=== PATIENT | male | born 1935 | race Caucasian/White ===

== ENCOUNTER 2020-10-24 02:49 | Inpatient (IN) ==
[2020-10-24] MEDS: NOREPINEPHRINE 8 MG in SODIUM CHLORIDE 0.9% 242 ML IV PRN ×2 (02:49→15:41)
[2020-10-24] MEDS ORDERED: MIDAZOLAM 10 MG/2 ML VIAL ONE (03:27)
[2020-10-24] MEDS ORDERED: DOPamine 800 MG/250 ML PREMIX IV PRN (03:44)
[2020-10-24] MEDS ORDERED: MIDAZOLAM 10 MG/2 ML VIAL IV STA ×2 (03:45)
[2020-10-24] MEDS: MIDAZOLAM 100 MG in SODIUM CHLORIDE 0.9% 80 ML IV PRN (04:16)
[2020-10-24 04:34] LABS: ABG Base Excess -3.8 MMOL/L (-2.5-2.5); ABG HCO3 21.4 MMOL/L (20-26); ABG Oxygen Saturation 96.4 % (95-100); ABG PCO2 39.2 MM HG (35-48); ABG PH 7.354 (7.35-7.45); ABG TCO2 22.6 MMOL/L (23-27)
[2020-10-24] MEDS ORDERED: ALBUTEROL/IPRATROPIUM 3 ML NEB RESP TX PRN (04:47)
[2020-10-24] MEDS ORDERED: ACETAMINOPHEN 325 MG TABLET PO PRN (04:47)
[2020-10-24] MEDS ORDERED: ONDANSETRON 4 MG/2 ML VIAL IV PRN (04:47)
[2020-10-24 04:50] LABS: Basophils % 0.2 % (0.0-0.8); Eosinophils % 0.1 % (0.00-10.9); Hematocrit 40.2 VOL% (42.0-52.0); Hemoglobin 13.1 GM/DL (14.0-18.0); Immature Granulocytes % 0.6 %; Immature Granulocytes Absolute 0.07 #; Lymphocytes # 0.7 10*3/uL (1.4-4.0); Lymphocytes % 5.4 % (21.2-54.2); Mean Corpuscular HGB Conc 32.6 GM/DL (32-36); Mean Corpuscular Volume 91.4 FL (87-102); Monocytes % 6.1 % (1.7-12.7); Neutrophils % 87.6 % (38.7-73.9); Platelet Count 253 T/CUMM (130-400); White Blood Count 12.7 T/CUMM (4-12)
[2020-10-24 04:53] LABS: Bilirubin,Urine Negative (Negative); Blood, Urine Negative (Negative); Glucose,Urine (UA) Negative (Negative); Ketones,Urine 5 mg/dL (Negative); Nitrite,Urine Negative (Negative); Protein,Urine 30 MG/DL; Urine Appearance CLEAR (Clear); Urine Specific Gravity 1.023 (1.001-1.035)
[2020-10-24] MEDS: PANTOPRAZOLE 40 MG VIAL IV SCH (05:08)
[2020-10-24] MEDS: LACTATED RINGERS 1,000 ML IV SCH ×3 (05:08→15:40)
[2020-10-24 05:13] LABS: Alanine Aminotransferase 19 U/L (16-61); Albumin 3.3 G/DL (3.4-5.0); Alkaline Phosphatase 103 U/L (45-117); Aspartate Amino Transferase 19 U/L (0-37); Blood Urea Nitrogen 35 MG/DL (7-18); Calcium 8.7 MG/DL (8.5-10.1); Carbon Dioxide 22 MMOL/L (21-32); Estimated Glom Filtration Rate 66 ML/MIN; Glucose 242 MG/DL (74-106); Osmolality,Calculated 292.5 MOS/KG (273-304); Potassium 3.7 MMOL/L (3.5-5.1); Sodium 139 MMOL/L (136-145); Total Protein 6.8 G/DL (6.4-8.3)
[2020-10-24 05:14] LABS: Ferritin 38.8 ng/ml (26-388)
[2020-10-24 05:15] LABS: Troponin I < 0.015 NG/ML (0.00-0.045)
[2020-10-24 05:17] LABS: INR 1.5; PT Patient Result 15.9 SECS (9.8-11.9); Partial Thromboplastin Time 39.8 SECS (23.9-33.8)
[2020-10-24] MEDS ORDERED: LACTATED RINGERS 1,000 ML IV ONE (05:24)
[2020-10-24] MEDS ORDERED: HEPARIN/NACL 0.9% 2 UNITS/ML 500 ML IV ONE (09:00)
[2020-10-24] MEDS: LEVOFLOXACIN INJ 750 MG in PREMIX 1 EACH IV SCH (09:40)
[2020-10-24] MEDS: MEROPENEM 500 MG in SODIUM CHLORIDE 0.9% 100 ML IV SCH ×3 (10:00→20:35)
[2020-10-24] MEDS: HEPARIN/NACL 0.9% 2 UNITS/ML 500 ML IV SCH (10:01)
[2020-10-24] MEDS: RIVAROXABAN 20 MG TABLET PO SCH (10:32)
[2020-10-25] MEDS: LACTATED RINGERS 1,000 ML IV SCH ×3 (02:14→21:42)
[2020-10-25] MEDS: MEROPENEM 500 MG in SODIUM CHLORIDE 0.9% 100 ML IV SCH ×4 (04:15→21:06)
[2020-10-25 04:43] LABS: ABG Base Excess 1.9 MMOL/L (-2.5-2.5); ABG HCO3 25.1 MMOL/L (20-26); ABG Oxygen Saturation 96.8 % (95-100); ABG PCO2 34.1 MM HG (35-48); ABG PH 7.484 (7.35-7.45); ABG PO2 85.1 MM HG (80-95); ABG TCO2 26.1 MMOL/L (23-27)
[2020-10-25 05:03] LABS: Basophils % 0.2 % (0.0-0.8); Eosinophils # 0.1 10*3/uL (0.0-0.87); Eosinophils % 0.6 % (0.00-10.9); Hematocrit 32.8 VOL% (42.0-52.0); Hemoglobin 10.8 GM/DL (14.0-18.0); Immature Granulocytes % 0.5 %; Immature Granulocytes Absolute 0.04 #; Lymphocytes # 0.7 10*3/uL (1.4-4.0); Lymphocytes % 8.7 % (21.2-54.2); Mean Corpuscular HGB Conc 32.9 GM/DL (32-36); Mean Corpuscular Volume 89.6 FL (87-102); Mean Platelet Volume 9.4 FL (9.6-12.0); Monocytes % 8.2 % (1.7-12.7); Neutrophils % 81.8 % (38.7-73.9); Platelet Count 199 T/CUMM (130-400); Red Blood Count 3.66 MC/CUMM (3.8-5.5); Red Cell Distribution Width 14.4 % (9.3-17.3); White Blood Count 8.5 T/CUMM (4-12)
[2020-10-25 05:21] LABS: Albumin 2.5 G/DL (3.4-5.0); Bilirubin,Total 0.7 MG/DL (0.2-1.0); Calcium 8.3 MG/DL (8.5-10.1); Osmolality,Calculated 295.7 MOS/KG (273-304); Potassium 3.4 MMOL/L (3.5-5.1); Risk Ratio 2.58; Total Protein 5.3 G/DL (6.4-8.3); VLDL CHOLESTEROL 17.2 MG/DL
[2020-10-25] MEDS: PANTOPRAZOLE 40 MG VIAL IV SCH (06:24)
[2020-10-25] MEDS: LEVOFLOXACIN INJ 750 MG in PREMIX 1 EACH IV SCH (06:25)
[2020-10-25] MEDS: RIVAROXABAN 20 MG TABLET PO SCH (08:18)
[2020-10-25] MEDS: HEPARIN/NACL 0.9% 2 UNITS/ML 500 ML IV SCH (09:27)
[2020-10-25] MEDS: amLODIPine 10 MG TABLET PO SCH (09:27)
[2020-10-25] MEDS: POTASSIUM CHLORIDE 20 MEQ/15 ML UDCUP PER TUBE PRN ×3 (11:40→15:00)
[2020-10-25] MEDS ORDERED: GLUCAGON 1 MG VIAL IM PRN (15:43)
[2020-10-25] MEDS ORDERED: DEXTROSE 50% 25 GM/50 ML VIAL IV PRN (15:43)
[2020-10-25] MEDS: INSULIN REGULAR 100 UNIT/ML SUBCUT SCH (18:37)
[2020-10-26] MEDS: INSULIN REGULAR 100 UNIT/ML SUBCUT SCH ×4 (01:14→18:32)
[2020-10-26] MEDS: MEROPENEM 500 MG in SODIUM CHLORIDE 0.9% 100 ML IV SCH ×4 (01:51→20:41)
[2020-10-26] MEDS: hydrALAZINE 20 MG/1 ML VIAL IV PRN ×2 (03:52→20:43)
[2020-10-26 04:18] LABS: ABG Base Excess 1.6 MMOL/L (-2.5-2.5); ABG HCO3 24.3 MMOL/L (20-26); ABG Oxygen Saturation 98.7 % (95-100); ABG PCO2 32.2 MM HG (35-48); ABG PH 7.496 (7.35-7.45); ABG PO2 140.4 MM HG (80-95); ABG TCO2 25.3 MMOL/L (23-27)
[2020-10-26 04:35] LABS: Basophils % 0.2 % (0.0-0.8); Eosinophils # 0.1 10*3/uL (0.0-0.87); Eosinophils % 1.3 % (0.00-10.9); Hematocrit 34.9 VOL% (42.0-52.0); Hemoglobin 11.1 GM/DL (14.0-18.0); Immature Granulocytes % 0.5 %; Immature Granulocytes Absolute 0.04 #; Lymphocytes # 1.4 10*3/uL (1.4-4.0); Lymphocytes % 17.1 % (21.2-54.2); Mean Corpuscular HGB Conc 31.8 GM/DL (32-36); Mean Corpuscular Volume 92.6 FL (87-102); Mean Platelet Volume 8.9 FL (9.6-12.0); Monocytes % 11.7 % (1.7-12.7); Neutrophils % 69.2 % (38.7-73.9); Platelet Count 208 T/CUMM (130-400); Red Blood Count 3.77 MC/CUMM (3.8-5.5); Red Cell Distribution Width 14.8 % (9.3-17.3); White Blood Count 8.3 T/CUMM (4-12)
[2020-10-26 04:55] LABS: Albumin 2.5 G/DL (3.4-5.0); Bilirubin,Total 0.6 MG/DL (0.2-1.0); Calcium 8.5 MG/DL (8.5-10.1); Osmolality,Calculated 287.3 MOS/KG (273-304); Potassium 3.8 MMOL/L (3.5-5.1); Total Protein 5.7 G/DL (6.4-8.3)
[2020-10-26] MEDS: LEVOFLOXACIN INJ 750 MG in PREMIX 1 EACH IV SCH (05:30)
[2020-10-26] MEDS: PANTOPRAZOLE 40 MG VIAL IV SCH (05:31)
[2020-10-26] MEDS: LACTATED RINGERS 1,000 ML IV SCH ×2 (07:42→17:42)
[2020-10-26] MEDS: RIVAROXABAN 20 MG TABLET PO SCH (09:35)
[2020-10-26] MEDS: amLODIPine 10 MG TABLET PO SCH (09:35)
[2020-10-26] MEDS: HEPARIN/NACL 0.9% 2 UNITS/ML 500 ML IV SCH (09:35)
[2020-10-27] MEDS: INSULIN REGULAR 100 UNIT/ML SUBCUT SCH ×5 (00:35→23:52)
[2020-10-27] MEDS: MEROPENEM 500 MG in SODIUM CHLORIDE 0.9% 100 ML IV SCH ×2 (04:01→08:40)
[2020-10-27] MEDS: MIDAZOLAM 100 MG in SODIUM CHLORIDE 0.9% 80 ML IV PRN ×2 (04:30→18:10)
[2020-10-27 04:50] LABS: ABG Base Excess 2.7 MMOL/L (-2.5-2.5); ABG HCO3 25.4 MMOL/L (20-26); ABG Oxygen Saturation 98.1 % (95-100); ABG PCO2 32.8 MM HG (35-48); ABG PH 7.507 (7.35-7.45); ABG PO2 107.9 MM HG (80-95); ABG TCO2 26.4 MMOL/L (23-27)
[2020-10-27] MEDS: LACTATED RINGERS 1,000 ML IV SCH ×2 (05:56→13:40)
[2020-10-27] MEDS: LEVOFLOXACIN INJ 750 MG in PREMIX 1 EACH IV SCH (07:15)
[2020-10-27] MEDS: PANTOPRAZOLE 40 MG VIAL IV SCH (07:16)
[2020-10-27] MEDS: amLODIPine 10 MG TABLET PO SCH (09:05)
[2020-10-27] MEDS: RIVAROXABAN 20 MG TABLET PO SCH (09:05)
[2020-10-27] MEDS: HEPARIN/NACL 0.9% 2 UNITS/ML 500 ML IV SCH (10:27)
[2020-10-27 14:13] LABS: Albumin 2.2 G/DL (3.4-5.0); Bilirubin,Total 0.7 MG/DL (0.2-1.0); Calcium 8.5 MG/DL (8.5-10.1); Osmolality,Calculated 286.4 MOS/KG (273-304); Potassium 3.6 MMOL/L (3.5-5.1); Total Protein 5.5 G/DL (6.4-8.3)
[2020-10-28] MEDS: LACTATED RINGERS 1,000 ML IV SCH ×3 (00:31→21:41)
[2020-10-28 04:29] LABS: ABG Base Excess 2.7 MMOL/L (-2.5-2.5); ABG HCO3 25.8 MMOL/L (20-26); ABG Oxygen Saturation 97.8 % (95-100); ABG PCO2 34.4 MM HG (35-48); ABG PH 7.493 (7.35-7.45); ABG PO2 101.2 MM HG (80-95); ABG TCO2 26.9 MMOL/L (23-27)
[2020-10-28 04:40] LABS: Basophils % 0.4 % (0.0-0.8); Eosinophils # 0.2 10*3/uL (0.0-0.87); Eosinophils % 3.1 % (0.00-10.9); Hematocrit 33.7 VOL% (42.0-52.0); Hemoglobin 10.9 GM/DL (14.0-18.0); Immature Granulocytes % 0.4 %; Immature Granulocytes Absolute 0.03 #; Lymphocytes # 0.8 10*3/uL (1.4-4.0); Lymphocytes % 11.1 % (21.2-54.2); Mean Corpuscular HGB Conc 32.3 GM/DL (32-36); Mean Corpuscular Volume 90.3 FL (87-102); Mean Platelet Volume 9.1 FL (9.6-12.0); Monocytes % 9.6 % (1.7-12.7); Neutrophils % 75.4 % (38.7-73.9); Platelet Count 228 T/CUMM (130-400); Red Blood Count 3.73 MC/CUMM (3.8-5.5); Red Cell Distribution Width 14.6 % (9.3-17.3); White Blood Count 6.7 T/CUMM (4-12)
[2020-10-28] MEDS: PANTOPRAZOLE 40 MG VIAL IV SCH (04:44)
[2020-10-28 04:57] LABS: Calcium 8.5 MG/DL (8.5-10.1); Osmolality,Calculated 286.3 MOS/KG (273-304); Potassium 3.6 MMOL/L (3.5-5.1)
[2020-10-28] MEDS: LEVOFLOXACIN INJ 750 MG in PREMIX 1 EACH IV SCH (05:00)
[2020-10-28] MEDS: INSULIN REGULAR 100 UNIT/ML SUBCUT SCH ×4 (05:33→23:42)
[2020-10-28] MEDS: RIVAROXABAN 20 MG TABLET PO SCH (09:05)
[2020-10-28] MEDS: amLODIPine 10 MG TABLET PO SCH (09:05)
[2020-10-28] MEDS: HEPARIN/NACL 0.9% 2 UNITS/ML 500 ML IV SCH (09:30)
[2020-10-28] MEDS: MIDAZOLAM 100 MG in SODIUM CHLORIDE 0.9% 80 ML IV PRN (14:15)
[2020-10-29] MEDS: LACTATED RINGERS 1,000 ML IV SCH ×4 (05:17→17:30)
[2020-10-29] MEDS: PANTOPRAZOLE 40 MG VIAL IV SCH (05:49)
[2020-10-29] MEDS: INSULIN REGULAR 100 UNIT/ML SUBCUT SCH ×3 (07:09→18:34)
[2020-10-29] MEDS: MIDAZOLAM 100 MG in SODIUM CHLORIDE 0.9% 80 ML IV PRN (07:22)
[2020-10-29] MEDS: LEVOFLOXACIN INJ 750 MG in PREMIX 1 EACH IV SCH (07:23)
[2020-10-29] MEDS: hydrALAZINE 20 MG/1 ML VIAL IV PRN (08:08)
[2020-10-29] MEDS: amLODIPine 10 MG TABLET PO SCH (10:10)
[2020-10-29] MEDS: RIVAROXABAN 20 MG TABLET PO SCH (10:10)
[2020-10-29] MEDS: HEPARIN/NACL 0.9% 2 UNITS/ML 500 ML IV SCH (10:31)
[2020-10-29] MEDS: ATORVASTATIN 80 MG TABLET PO SCH (20:56)
[2020-10-30] MEDS: INSULIN REGULAR 100 UNIT/ML SUBCUT SCH ×5 (00:43→23:07)
[2020-10-30] MEDS: MIDAZOLAM 100 MG in SODIUM CHLORIDE 0.9% 80 ML IV PRN (01:34)
[2020-10-30 03:44] LABS: Basophils % 0.3 % (0.0-0.8); Eosinophils # 0.3 10*3/uL (0.0-0.87); Eosinophils % 4.9 % (0.00-10.9); Hematocrit 33.5 VOL% (42.0-52.0); Hemoglobin 10.7 GM/DL (14.0-18.0); Immature Granulocytes % 0.8 %; Immature Granulocytes Absolute 0.05 #; Lymphocytes # 0.9 10*3/uL (1.4-4.0); Lymphocytes % 14.1 % (21.2-54.2); Mean Corpuscular HGB Conc 31.9 GM/DL (32-36); Mean Corpuscular Volume 92.3 FL (87-102); Mean Platelet Volume 8.7 FL (9.6-12.0); Monocytes % 13.8 % (1.7-12.7); Neutrophils % 66.1 % (38.7-73.9); Platelet Count 244 T/CUMM (130-400); Red Blood Count 3.63 MC/CUMM (3.8-5.5); White Blood Count 6.2 T/CUMM (4-12)
[2020-10-30 03:48] LABS: ABG HCO3 27.1 MMOL/L (20-26); ABG Oxygen Saturation 98.5 % (95-100); ABG PCO2 35.5 MM HG (35-48); ABG PH 7.479 (7.35-7.45); ABG TCO2 23.6 MMOL/L (23-27)
[2020-10-30 04:02] LABS: Calcium 8.4 MG/DL (8.5-10.1); Osmolality,Calculated 284.3 MOS/KG (273-304); Potassium 3.7 MMOL/L (3.5-5.1)
[2020-10-30] MEDS: PANTOPRAZOLE 40 MG VIAL IV SCH (04:30)
[2020-10-30] MEDS: LACTATED RINGERS 1,000 ML IV SCH ×4 (04:56→20:14)
[2020-10-30] MEDS: LEVOFLOXACIN INJ 750 MG in PREMIX 1 EACH IV SCH (05:44)
[2020-10-30] MEDS: hydrALAZINE 20 MG/1 ML VIAL IV PRN (07:03)
[2020-10-30] MEDS: amLODIPine 10 MG TABLET PO SCH (08:53)
[2020-10-30] MEDS: RIVAROXABAN 20 MG TABLET PO SCH (08:53)
[2020-10-30] MEDS: HEPARIN/NACL 0.9% 2 UNITS/ML 500 ML IV SCH (14:24)
[2020-10-30] MEDS: ATORVASTATIN 80 MG TABLET PO SCH (20:14)
[2020-10-31] MEDS: LACTATED RINGERS 1,000 ML IV SCH ×3 (00:30→21:41)
[2020-10-31 04:31] LABS: ABG HCO3 26.2 MMOL/L (20-26); ABG Oxygen Saturation 97.2 % (95-100); ABG PCO2 37.5 MM HG (35-48); ABG PH 7.449 (7.35-7.45); ABG PO2 90.3 MM HG (80-95); ABG TCO2 23.4 MMOL/L (23-27)
[2020-10-31] MEDS: PANTOPRAZOLE 40 MG VIAL IV SCH (05:21)
[2020-10-31] MEDS: INSULIN REGULAR 100 UNIT/ML SUBCUT SCH ×4 (05:24→23:43)
[2020-10-31] MEDS: LEVOFLOXACIN INJ 750 MG in PREMIX 1 EACH IV SCH (05:25)
[2020-10-31] MEDS: amLODIPine 10 MG TABLET PO SCH (08:36)
[2020-10-31] MEDS: RIVAROXABAN 20 MG TABLET PO SCH (08:36)
[2020-10-31] MEDS: MIDAZOLAM 100 MG in SODIUM CHLORIDE 0.9% 80 ML IV PRN (13:00)
[2020-10-31] MEDS ORDERED: MIDAZOLAM 100 MG in SODIUM CHLORIDE 0.9% 80 ML IV PRN (18:05)
[2020-10-31] MEDS: ATORVASTATIN 80 MG TABLET PO SCH (20:45)
[2020-10-31] MEDS: HEPARIN/NACL 0.9% 2 UNITS/ML 500 ML IV SCH (21:01)
[2020-11-01 04:14] LABS: Basophils % 0.6 % (0.0-0.8); Eosinophils # 0.4 10*3/uL (0.0-0.87); Eosinophils % 6.8 % (0.00-10.9); Hematocrit 33.4 VOL% (42.0-52.0); Hemoglobin 10.6 GM/DL (14.0-18.0); Immature Granulocytes % 0.9 %; Immature Granulocytes Absolute 0.05 #; Lymphocytes # 0.9 10*3/uL (1.4-4.0); Lymphocytes % 16.4 % (21.2-54.2); Mean Corpuscular HGB Conc 31.7 GM/DL (32-36); Mean Corpuscular Volume 93.6 FL (87-102); Mean Platelet Volume 8.5 FL (9.6-12.0); Monocytes % 10.7 % (1.7-12.7); Neutrophils % 64.6 % (38.7-73.9); Platelet Count 243 T/CUMM (130-400); Red Blood Count 3.57 MC/CUMM (3.8-5.5); Red Cell Distribution Width 14.9 % (9.3-17.3); White Blood Count 5.4 T/CUMM (4-12)
[2020-11-01] MEDS: LACTATED RINGERS 1,000 ML IV SCH ×3 (04:24→18:25)
[2020-11-01 05:05] LABS: Calcium 8.1 MG/DL (8.5-10.1); Osmolality,Calculated 286.3 MOS/KG (273-304); Potassium 3.6 MMOL/L (3.5-5.1)
[2020-11-01] MEDS: INSULIN REGULAR 100 UNIT/ML SUBCUT SCH (05:15)
[2020-11-01] MEDS: PANTOPRAZOLE 40 MG VIAL IV SCH (05:30)
[2020-11-01 06:01] LABS: ABG Base Excess 2.8 MMOL/L (-2.5-2.5); ABG HCO3 26.9 MMOL/L (20-26); ABG Oxygen Saturation 96.9 % (95-100); ABG PCO2 37.8 MM HG (35-48); ABG PH 7.456 (7.35-7.45); ABG PO2 86.7 MM HG (80-95); ABG TCO2 23.9 MMOL/L (23-27)
[2020-11-01] MEDS: POTASSIUM CHLORIDE 20 MEQ/15 ML UDCUP PER TUBE PRN (06:15)
[2020-11-01] MEDS: amLODIPine 10 MG TABLET PO SCH ×2 (09:00→09:55)
[2020-11-01] MEDS: RIVAROXABAN 20 MG TABLET PO SCH (09:10)
[2020-11-01] MEDS: HEPARIN/NACL 0.9% 2 UNITS/ML 500 ML IV SCH (09:30)
[2020-11-01] MEDS ORDERED: LORazepam 2 MG/1 ML VIAL IV PRN (13:12)
[2020-11-01] MEDS: MENTHOL/ZINC OXIDE OINT 71 GM JAR TOP SCH ×2 (13:30→21:39)
[2020-11-01] MEDS: MORPHINE 4 MG/1 ML VIAL IV PRN (21:39)
[2020-11-02] MEDS: LACTATED RINGERS 1,000 ML IV SCH ×4 (00:16→23:50)
[2020-11-02] MEDS: PANTOPRAZOLE 40 MG VIAL IV SCH (05:15)
[2020-11-02 06:45] LABS: ABG Base Excess 2.3 MMOL/L (-2.5-2.5); ABG HCO3 26.5 MMOL/L (20-26); ABG Oxygen Saturation 96.9 % (95-100); ABG PCO2 32.3 MM HG (35-48); ABG PH 7.499 (7.35-7.45); ABG PO2 86.6 MM HG (80-95); ABG TCO2 22.6 MMOL/L (23-27)
[2020-11-02 06:50] LABS: Basophils % 0.5 % (0.0-0.8); Eosinophils # 0.3 10*3/uL (0.0-0.87); Eosinophils % 5.2 % (0.00-10.9); Hematocrit 33.6 VOL% (42.0-52.0); Hemoglobin 10.8 GM/DL (14.0-18.0); Immature Granulocytes % 0.8 %; Immature Granulocytes Absolute 0.05 #; Lymphocytes # 0.8 10*3/uL (1.4-4.0); Lymphocytes % 13.6 % (21.2-54.2); Mean Corpuscular HGB Conc 32.1 GM/DL (32-36); Mean Corpuscular Volume 91.6 FL (87-102); Mean Platelet Volume 8.4 FL (9.6-12.0); Monocytes % 12.2 % (1.7-12.7); Neutrophils % 67.7 % (38.7-73.9); Platelet Count 265 T/CUMM (130-400); Red Blood Count 3.67 MC/CUMM (3.8-5.5); Red Cell Distribution Width 14.6 % (9.3-17.3)
[2020-11-02 07:15] LABS: Calcium 8.1 MG/DL (8.5-10.1); Osmolality,Calculated 290.7 MOS/KG (273-304); Potassium 3.8 MMOL/L (3.5-5.1)
[2020-11-02] MEDS: MENTHOL/ZINC OXIDE OINT 71 GM JAR TOP SCH ×2 (09:10→22:10)
[2020-11-02] MEDS: HEPARIN/NACL 0.9% 2 UNITS/ML 500 ML IV SCH (09:30)
[2020-11-02] MEDS ORDERED: cloNIDine 0.3 MG/24 HR PATCH TRANSDERM SCH (09:30)
[2020-11-03] MEDS: PANTOPRAZOLE 40 MG VIAL IV SCH (05:33)
[2020-11-03 05:52] LABS: Basophils % 0.5 % (0.0-0.8); Eosinophils # 0.2 10*3/uL (0.0-0.87); Eosinophils % 2.1 % (0.00-10.9); Hematocrit 35.4 VOL% (42.0-52.0); Hemoglobin 11.5 GM/DL (14.0-18.0); Immature Granulocytes % 0.6 %; Immature Granulocytes Absolute 0.05 #; Lymphocytes # 0.7 10*3/uL (1.4-4.0); Lymphocytes % 8.9 % (21.2-54.2); Mean Corpuscular HGB Conc 32.5 GM/DL (32-36); Mean Corpuscular Volume 91.7 FL (87-102); Mean Platelet Volume 8.7 FL (9.6-12.0); Monocytes % 8.9 % (1.7-12.7); Platelet Count 273 T/CUMM (130-400); Red Blood Count 3.86 MC/CUMM (3.8-5.5); Red Cell Distribution Width 14.6 % (9.3-17.3); White Blood Count 8.3 T/CUMM (4-12)
[2020-11-03 06:08] LABS: Calcium 9.1 MG/DL (8.5-10.1); Osmolality,Calculated 286.1 MOS/KG (273-304); Potassium 3.6 MMOL/L (3.5-5.1)
[2020-11-03] MEDS: MENTHOL/ZINC OXIDE OINT 71 GM JAR TOP SCH ×2 (10:31→21:35)
[2020-11-03] MEDS: LACTATED RINGERS 1,000 ML IV SCH ×2 (10:31→20:45)
[2020-11-04] MEDS: PANTOPRAZOLE 40 MG VIAL IV SCH (05:49)
[2020-11-04] MEDS: LACTATED RINGERS 1,000 ML IV SCH ×2 (05:49→19:58)
[2020-11-04 06:08] LABS: Basophils % 0.5 % (0.0-0.8); Eosinophils # 0.1 10*3/uL (0.0-0.87); Hematocrit 33.9 VOL% (42.0-52.0); Hemoglobin 10.5 GM/DL (14.0-18.0); Immature Granulocytes % 0.7 %; Immature Granulocytes Absolute 0.06 #; Lymphocytes # 0.8 10*3/uL (1.4-4.0); Lymphocytes % 9.1 % (21.2-54.2); Mean Platelet Volume 9.3 FL (9.6-12.0); Monocytes % 8.8 % (1.7-12.7); Neutrophils % 79.9 % (38.7-73.9); Platelet Count 277 T/CUMM (130-400); Red Blood Count 3.57 MC/CUMM (3.8-5.5); Red Cell Distribution Width 14.7 % (9.3-17.3); White Blood Count 8.8 T/CUMM (4-12)
[2020-11-04 06:26] LABS: Calcium 8.7 MG/DL (8.5-10.1); Osmolality,Calculated 295.7 MOS/KG (273-304); Potassium 3.9 MMOL/L (3.5-5.1)
[2020-11-04] MEDS: MENTHOL/ZINC OXIDE OINT 71 GM JAR TOP SCH ×2 (11:17→20:00)
[2020-11-05] MEDS: PANTOPRAZOLE 40 MG VIAL IV SCH (06:16)
[2020-11-05] MEDS: MENTHOL/ZINC OXIDE OINT 71 GM JAR TOP SCH (07:13)
[2020-11-05 08:12] VITALS: BP 127/79
[2020-11-05] MEDS ORDERED: ACETAMINOPHEN 650 MG SUPP RECTAL PRN (10:03)
[2020-11-05] MEDS: MORPHINE 4 MG/1 ML VIAL IV PRN (15:53)
== END 2020-11-05 16:00 | disposition hospice, inpatient (51) | DRG 207 ==
LOC: N.ED 02:49 → N.EDINP 04:47 → SUATTDRO 04:47 → N.CVR 05:54 → N.ICU 10-25 18:38 → N.4E 11-02 14:37
PROVIDERS: ADMIT Family Medicine; ATTEND Internal Medicine Geriatric Medicine

== ENCOUNTER 2020-11-05 16:03 | Inpatient (IN) ==
[2020-11-05] MEDS: MENTHOL/ZINC OXIDE OINT 71 GM JAR TOP SCH (20:24)
[2020-11-05] MEDS: MORPHINE 4 MG/1 ML VIAL IV PRN (20:24)
[2020-11-06] MEDS: MORPHINE 4 MG/1 ML VIAL IV PRN ×2 (08:48→22:39)
[2020-11-06] MEDS: ACETAMINOPHEN 650 MG SUPP RECTAL PRN (08:48)
[2020-11-06] MEDS: MENTHOL/ZINC OXIDE OINT 71 GM JAR TOP SCH ×2 (09:02→20:09)
[2020-11-07] MEDS: LORazepam 2 MG/1 ML VIAL IV PRN ×3 (08:56→20:27)
[2020-11-07] MEDS: MENTHOL/ZINC OXIDE OINT 71 GM JAR TOP SCH ×2 (08:56→20:27)
[2020-11-07] MEDS: ACETAMINOPHEN 650 MG SUPP RECTAL PRN (10:06)
[2020-11-07] MEDS: MORPHINE 4 MG/1 ML VIAL IV PRN (13:19)
[2020-11-08] MEDS: MORPHINE 4 MG/1 ML VIAL IV PRN (09:50)
[2020-11-08 10:06] VITALS: BP 112/83
[2020-11-08] MEDS: MENTHOL/ZINC OXIDE OINT 71 GM JAR TOP SCH (10:41)
[2020-11-08] MEDS ORDERED: ATROPINE 1 % OPH SOLN 5 ML BOTTLE SL PRN (11:06)
[2020-11-08] MEDS ORDERED: LORazepam 2 MG/1 ML VIAL IV PRN ×2 (11:16→11:17)
[2020-11-08] MEDS ORDERED: MORPHINE 4 MG/1 ML VIAL IV PRN ×2 (11:16→11:17)
[2020-11-10] MEDS ORDERED: cloNIDine 0.3 MG/24 HR PATCH TRANSDERM SCH (09:00)
== END 2020-11-08 13:25 | disposition expired | DRG 951 ==
LOC: SUATTDRO 16:03 → N.4E 16:03
PROVIDERS: ADMIT Internal Medicine Geriatric Medicine; ATTEND Family Medicine